=== PATIENT | male | born 1945 | race Caucasian/White ===

== ENCOUNTER → 2023-02-07 | Outpatient (CLI) | payer MEDICARE, OTHER ==
[~2023-02-07] MED LIST: AMLO-250 PO; ASCO500T17 PO; ASPI-586 PO; ATEN50TA PO; ATOR40TA70 PO; BENA10TA66 PO; CIPR-226 PO; FISH OIL OMEGA1 EAC1 PO; HYDR-3920 PO; MULT1CAP27 PO; RT-ALBUTEROL SULF 2.5 MG/3 ML PRE-MIX VIAL INH ONE; TMSL.4C PO
== END ==
LOC: RT 13:52
PROVIDERS: ATTEND Nurse Practitioner
DX: J43.2 Centrilobular emphysema (principal)
CPT/HCPCS: 94060; 94726; 94729